=== PATIENT | male | born 1985 | race Caucasian/White ===

== ENCOUNTER 2021-01-04 11:41 | Emergency (ER) | payer OTHER ==
[2021-01-04] MEDS ORDERED: AUGMENTIN 875-1 EACH PO (15:16)
== END 2021-01-04 15:20 | disposition home or self-care (01) ==
LOC: FER 11:41
DX: S62.631A Displaced fracture of distal phalanx of left index finger, initial encounter for closed fracture (principal); S62.633A Displaced fracture of distal phalanx of left middle finger, initial encounter for closed fracture; W22.8XXA Striking against or struck by other objects, initial encounter; Y92.009 Unspecified place in unspecified non-institutional (private) residence as the place of occurrence of the external cause
CPT/HCPCS: 73130